=== PATIENT | female | born 1950 | race Caucasian/White ===

== ENCOUNTER 2018-06-09 18:04 | Emergency (ER) | payer MEDICARE, SELFPAY ==
[2018-06-09 18:26] VITALS: BP 132/76; PULSE 87; RESP 18; TEMP 37.1; O2SAT 96
--- NOTE | 2018-06-09 20:49 | ED.ABDPAIN ---
HPI - Abdominal Pain General Chief Complaint: Abdominal Pain Stated Complaint: IBS, PAIN PAST WEEK Time Seen by Provider: 06/09/18 20:29 Source: patient Mode of arrival: ambulatory Limitations: no limitations History of Present Illness HPI narrative: Patient is a 68-year-old female who presents with left lower quadrant pain and bloating. She says this is her IBS acting up she has had IBS for a number of years. She usually takes Bentyl which helps with her pain however it has not been helping. She thinks she had a fever of 100.3 a few days ago but nothing since. She had a normal bowel movement today. No nausea or vomiting. She is wanting something more for the pain she has been taking ibuprofen as well. She says usually stress brings on her IBS. A recent in the family has caused a lot of stress. MD complaint: abdominal pain Related Data Previous Rx's Medication Instructions Recorded dicyclomine 10 mg PO TID #90 cap 01/19/17 Allergies Allergy/AdvReac Type Severity Reaction Status Date / Time codeine [CODEINE] Allergy Unknown Unverified 02/04/18 11:45 latex [LATEX] Allergy Unknown Unverified 02/04/18 11:45 Penicillins [PENICILLINS] Allergy Unknown Unverified 02/04/18 11:45 Review of Systems Review of Systems All systems reviewed & are unremarkable except as noted in HPI and below Constitutional Denies chills, Denies fever(s), Denies lethargy and Denies weakness Cardiovascular Denies chest pain, Denies irregular heart rhythm, Denies lightheadedness, Denies palpitations, Denies dyspnea, Denies dyspnea on exertion and Denies orthopnea Respiratory Denies cough, Denies dyspnea, Denies dyspnea on exertion and Denies wheezing Gastrointestinal Gastrointestinal: Reports as per HPI Musculoskeletal Denies back pain, Denies muscle weakness, Denies numbness and Denies tingling Integumentary/Breasts Denies pruritus, Denies erythema, Denies rash and Denies wounds Neurologic Denies numbness, Denies tingling and Denies weakness Endocrine Denies palpitations Allergic/Immunologic Denies wheezing PFSH Medical History IBS (irritable bowel syndrome) (Acute) Social History marital status: Smoking Status: Former smoker Exam Initial Vital Signs Initial Vital Signs: Vital Signs Temperature 98.7 F 06/09/18 18:26 Pulse Rate 87 06/09/18 18:26 Respiratory Rate 18 06/09/18 18:26 Blood Pressure 132/76 H 06/09/18 18:26 Pulse Oximetry 96 06/09/18 18:26 GENERAL: Is anxious elderly female alert and oriented x3 HEENT: Head atraumatic,EOMI, pupils reactive, face symmetric, CARDIOVASCULAR: Regular rate and rhythm without murmurs, rubs or gallops. RESPIRATORY: Breath sounds equal bilaterally, no wheezes rales or rhonchi. ABDOMEN: Soft, mild left lower quadrant pain without guarding or rebound Normoactive bowel sounds all 4 quadrants. No guarding or rebound. : No CVA tenderness EXTREMITIES: Normal range of motion, no clubbing or edema. Neurovascularly intact NEUROLOGICAL: Alert and oriented x4.Normal gait and speech. SKIN: Warm, dry, no laceration, no petechiae, no rashes or lesions. Course Orders Ordered: ED Orders 06/09/18 20:50 Complete Blood Count AUTO DIFF Stat Comprehensive Metabolic Panel Stat Lipase Stat Discontinued Medications Hydrocodone Bitart/Acetaminophen (Vicodin Prepack) 1 bottle MISC SEEINSTR ONE Stop: 06/09/18 21:51 Last Admin: 06/09/18 21:53 Dose: 1 bottle Sodium Chloride (Normal Saline 0.9%) 1,000 mls @ 150 mls/hr IV CONT RAO Last Admin: 06/09/18 21:15 Dose: Not Given Ketorolac Tromethamine (Toradol) 30 mg IV NOW ONE Stop: 06/09/18 20:51 Last Admin: 06/09/18 21:12 Dose: 30 mg Vital Signs - 8 hr 06/09/18 18:26 Temperature 98.7 F Pulse Rate 87 Respiratory Rate 18 Blood Pressure 132/76 H Pulse Oximetry 96 MDM - Abdominal Pain Lab Data Result diagrams: 06/09/18 20:50 06/09/18 20:50 Lab Results 06/09/18 06/09/18 Range/Units 20:50 20:50 WBC 7.0 (4.5-11.0) X10^3/uL RBC 4.56 (4.0-5.2) X10^6/uL Hgb 13.8 (12.0-16.0) g/dL Hct 40.7 (36-46) % MCV 89.2 (80-100) fL MCH 30.2 (26-34) PG MCHC 33.9 (30-36) % RDW 13.0 (11.6-14.8) % Plt Count 313 (150-400) X10^3/uL Neut % (Auto) 54.4 (50-75) % Lymph % (Auto) 30.2 (25-40) % [place] % (Auto) 12.0 (3-14) % Eos % (Auto) 2.5 (2-4) % Baso % (Auto) 0.9 (0-2) % Neut # (Auto) 3800 (9995-7570) /uL Sodium 140 (137-145) mmol/L Potassium 4.0 (3.4-5.1) mmol/L Chloride 100 (98-107) mmol/L Carbon Dioxide 27 (22-32) mmol/L BUN 21 H (7-17) mg/dL Creatinine 1.10 H (0.52-1.04) mg/dL Estimated GFR 49.1 L (>60) mL/min BUN/Creatinine Ratio 19.1 (6-22) Glucose 100 (80-110) mg/dL Calcium 10.2 (8.4-10.2) mg/dL Total Bilirubin 0.4 (0.2-1.3) mg/dL AST 27 (14-36) IU/L ALT 20 (9-52) IU/L Alkaline Phosphatase 62 (38-126) U/L Total Protein 8.1 (6.3-8.2) g/dL Albumin 4.7 (3.5-5.0) g/dL Globulin 3.4 (1.7-4.1) g/dL Albumin/Globulin Ratio 1.4 (1.0-2.8) Lipase 112 (23-300) U/L [facility] Narrative Medical decision making narrative: Patient is extremely anxious I did recommend blood work for left lower quadrant pain and possible fever. Although she does not appear toxic or septic. She did finally agree to it. She did not have any relief with Toradol. Blood work is within normal limits. We did discuss imaging. As a however at this time she does not want any imaging. Her abdomen is overall soft and nondistended mildly tender in the left lower quadrant. She is wanting something stronger for pain. This is similar to all her previous IBS attacks. She is given tramadol for which she can take at home. I discussed all findings with the patient and , Education has been performed regarding treatment plan, diagnosis, warning signs and symptoms and all concerns have been addressed. Verbally agree with and understood all of the above. Discharge Plan Departure Patient Disposition: Home, Self-Care Clinical Impression: IBS (irritable bowel syndrome) Discharge Date/Time: 06/09/18 22:01 Interventions: ED Discharge Assessment Last Done: 06/09/18 21:54 Instructions: DI for Irritable Bowel Syndrome Activity Restrictions/Additional Instructions: *You have been diagnosed with irritable bowel syndrome * may require CT abdomen if pain continues *Continue to take medications as directed -[place] 1 tablet every 6 hr if needed for severe pain *Follow up with your primary care provider in 2-3 days *Return to ER if you should have increasing pain, fever or any new, worsening or concerning symptoms CONTROLLED SUBSTANCE DISCHARGE (Narcotoic/benzodiazepine/Flexeril/Phenergan) 1. You have been prescribed narcotic medications, it does have acetaminophen/Tylenol/paracetamol in it so do not take extra Tylenol or Tylenol containing products 2. Please understand that we cannot provide further refills of narcotics, benzodiazepines or controlled substances through the ED and her pain management will need to be through your provider. 3. While on these medications you cannot drive or operate heavy machinery. 4. You cannot sign legal documents or perform any duties such as this. 5. As long as you're taking opiate pain medications he should also be taking a stool softener such as Colace, Dulcolax, MiraLAX or prune juice, to help avoid constipation. Prescriptions: No Action dicyclomine 10 MG capsule 10 mg PO TID Qty: 90 RF: 6
[2018-06-09 21:10] LABS: Add Manual Diff / Slide Review NO; Basophils Percent Auto 0.9 % (0-2); Eosinophils Percent Auto 2.5 % (2-4); Hematocrit 40.7 % (36-46); Hemoglobin 13.8 g/dL (12.0-16.0); Lymphocytes Percent Auto 30.2 % (25-40); Mean Corpuscular HGB Conc 33.9 % (30-36); Mean Corpuscular Hemoglobin 30.2 PG (26-34); Mean Corpuscular Volume 89.2 fL (80-100); Neutrophils Absolute Auto 3800 /uL (3000-5900); Neutrophils Percent Auto 54.4 % (50-75); Platelet Count 313 X10^3/uL (150-400); Red Blood Cell Count 4.56 X10^6/uL (4.0-5.2)
[2018-06-09] MEDS: KETOROLAC 60 MG/2 ML VIAL 30 MG IV (21:12)
[2018-06-09 21:20] LABS: Alanine Aminotransferase 20 IU/L (9-52); Albumin 4.7 g/dL (3.5-5.0); Albumin Globulin Ratio 1.4 (1.0-2.8); Alkaline Phosphatase 62 U/L (38-126); Aspartate Aminotransferase 27 IU/L (14-36); BUN Creatinine Ratio 19.1 (6-22); Bilirubin Total 0.4 mg/dL (0.2-1.3); Blood Urea Nitrogen 21 mg/dL (7-17); Calcium 10.2 mg/dL (8.4-10.2); Carbon Dioxide 27 mmol/L (22-32); Chloride 100 mmol/L (98-107); Estimated Glomerular Filt Rate 49.1 mL/min (>60); Globulin 3.4 g/dL (1.7-4.1); Glucose 100 mg/dL (80-110); HEMOLYSIS < 15 (0-50); Lipase 112 U/L (23-300); Sodium 140 mmol/L (137-145); Total Protein 8.1 g/dL (6.3-8.2)
[2018-06-09] MEDS: HYDROCODONE/ACET 5/325 PREPACK 1 BOTTLE MISC (21:53)
== END 2018-06-09 22:01 | disposition home or self-care (01) ==
PROVIDERS: Emergency Provider Emergency Medicine
DX: K58.9 Irritable bowel syndrome, unspecified (principal)
CPT/HCPCS: 80053; 83690; 85025; 96374; 99282; 99284; J1885

== ENCOUNTER → 2018-06-24 16:52 | Outpatient (CLI) | payer MEDICARE, SELFPAY ==
[2018-06-24 17:29] LABS: BUN Creatinine Ratio 18.2 (6-22); Blood Urea Nitrogen 20 mg/dL (7-17); Calcium 10.5 mg/dL (8.4-10.2); Carbon Dioxide 29 mmol/L (22-32); Chloride 102 mmol/L (98-107); Estimated Glomerular Filt Rate 49.1 mL/min (>60); Glucose 102 mg/dL (80-110); HEMOLYSIS < 15 (0-50); Potassium 4.7 mmol/L (3.4-5.1); Sodium 144 mmol/L (137-145)
== END ==
PROVIDERS: Visit Provider Physician Assistant
DX: N28.9 Disorder of kidney and ureter, unspecified (principal)
CPT/HCPCS: 80048